=== PATIENT | female | born 1940 | race Caucasian/White ===

== ENCOUNTER 2016-11-21 07:38 | Emergency (ER) | payer MEDICARE, OTHER ==
--- NOTE | 2016-11-21 08:09 | ERPHSYRPT ---
- History of Present Illness Time Seen by Provider: 11/21/16 08:02 Source: patient Exam Limitations: no limitations Patient Subjective Stated Complaint: PT REPORTS SEVERE PAIN TO RIGHT LOWER LEG- STATES PAIN INCREASES WITH MOVEMENT-UPPER LEG IS THROBBING PAIN-REPORTS FULL SENSATION TO FOOT-DENIES INJURY Triage Nursing Assessment: PT PALE WRAM ET DRY-SCREAMING WITH MOVEMENT SHE MOVES RIGHT LEG-NO PULSE FELT-DOPPLER WAS NEG-REDNESS NOTED TO EXTREMITY Physician History: The patient is a 76-year-old female brought in by ambulance from home complaining of increasing pain in her right leg for 5 days. Yesterday she took Aleve which alleviated the pain. 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 The pain worsens when she tries to move her leg. She states sometimes it feels like it's cramping. She denies any injury to the leg. Her past medical history is significant for hypertension , high cholesterol, hypothyroidism, diabetes, and gout. Method of Injury: unknown Occurred: days ago (5) Quality: cramping, sharpness Severity of Pain-Max: severe Severity of Pain-Current: severe Lower Extremities Pain: leg: right, thigh: right Modifying Factors: Improves With: pain medication Associated Symptoms: unable to bear weight Allergies/Adverse Reactions: red dye Allergy (Verified 11/21/16 07:48) Sulfa (Sulfonamide Antibiotics) Allergy (Verified 11/21/16 07:48) Home Medications: Allopurinol 300 mg [Zyloprim 300 mg] 300 mg PO DAILY 05/08/16 [History] Clopidogrel Bisulfate 75 mg [PLAVIX 75 MG Tablet] 75 mg PO DAILY 05/08/16 [History] Furosemide 80 mg [Lasix 80 mg] 80 mg PO BID 05/08/16 [History] Glipizide 5 mg [Glucotrol 5 MG] 5 mg PO BID 05/08/16 [History] Levothyroxine Sodium 100 Mcg [Synthroid 100 Mcg] 100 mcg PO DAILY 05/08/16 [History] Losartan Potassium 100 mg PO DAILY 05/08/16 [History] Metoprolol Tartrate 25 mg [Lopressor 25MG Tab] 25 mg PO BID 05/08/16 [ History] Potassium Chloride 20 Meq [Klor-Con 20 MEQ] 20 meq PO TID 05/08/16 [History] Pravastatin Sodium 20 mg PO HS 05/08/16 [History] Spironolactone 25 mg [Aldactone 25 MG] 25 mg PO DAILY 05/08/16 [History] Aspirin 81 mg PO DAILY 11/21/16 [History] Hx Tetanus, Diphtheria Vaccination/Date Given: No Hx Influenza Vaccination/Date Given: No Hx Pneumococcal Vaccination/Date Given: No Immunizations Up to Date: Yes - Review of Systems Constitutional: No Fever, No Chills Eyes: No Symptoms Ears, Nose, & Throat: No Symptoms Respiratory: No Cough, No Dyspnea Cardiac: No Chest Pain, No Edema, No Syncope Abdominal/Gastrointestinal: No Abdominal Pain, No Nausea, No Vomiting, No Diarrhea Genitourinary Symptoms: No Dysuria Musculoskeletal: Other (right leg pain) Skin: No Rash Neurological: No Dizziness, No Focal Weakness, No Sensory Changes Psychological: No Symptoms Endocrine: No Symptoms Hematologic/Lymphatic: No Symptoms Immunological/Allergic: No Symptoms All Other Systems: Reviewed and Negative - Past Medical History Pertinent Past Medical History: Yes Neurological History: No Pertinent History ENT History: No Pertinent History Cardiac History: Coronary Artery Disease, High Cholesterol, Hypertension, Myocardial Infarction (MD) Respiratory History: Sleep Apnea, Other Endocrine Medical History: Diabetes Type II, Hypothyroidism Musculoskeletal History: No Pertinent History GI Medical History: No Pertinent History History: No Pertinent History Psycho-Social History: No Pertinent History Female Reproductive Disorders: No Pertinent History Other Medical History: 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 - Past Surgical History Past Surgical History: Yes Neuro Surgical History: No Pertinent History Cardiac: CABG Respiratory: No Pertinent History Gastrointestinal: Appendectomy, Cholecystectomy Genitourinary: No Pertinent History Musculoskeletal: No Pertinent History Female Surgical History: No Pertinent History - Social History Smoking Status: Never smoker Exposure to second hand smoke: No Drug Use: none Patient Lives Alone: No - Nursing Vital Signs Nursing Vital Signs: Initial Vital Signs Temperature 98.1 F Temperature Source Oral Pulse Rate 70 Respiratory Rate 18 Blood Pressure [] 117/79 Pain Intensity 16 - Physical Exam General Appearance: moderate distress Eyes, Ears, Nose, Throat Exam: moist mucous membranes Neck Exam: non-tender, supple Cardiovascular/Respiratory Exam: chest non-tender, normal breath sounds, regular rate/rhythm, no respiratory distress Gastrointestinal/Abdominal Exam: non-tender, guarding Back Exam: normal inspection, No vertebral tenderness Hips Exam: bilateral: non-tender, normal inspection Legs Exam: right leg: limited range of motion, soft tissue tenderness, left leg : non-tender, normal inspection Knees Exam: right knee: soft tissue tenderness (Examination of the right leg reveals soft tissue tenderness to palpation of the right iliotibial band and to a lesser extent to the right mid quadricep muscles. Lifting the right leg while keeping the knee straight elicits a pain response coming from the quadricep muscle area. There is redness in the distal part of the lower legs bilaterally. Both legs are cool to touch.), bilateral knee: normal inspection Ankle Exam: bilateral ankle: non-tender Foot Exam: bilateral foot: non-tender, normal inspection Neuro/Tendon Exam: normal sensation, normal motor functions Mental Status Exam: alert, oriented x 3, cooperative Skin Exam: rash (stasis dermatitis bilateral lower legs.) SpO2 Interpretation: normal SpO2: 97 Oxygen Delivery: Room Air - Radiology Exams Right Hip X-ray Interpretation: Interpreted by me, Negative, No Fracture - Radiology Ultrasound Exam Right Venous Lower Extremity Ultrasound: negative, Other (per U/S tech there are no DVT) Ordered Tests: Active Orders 24 hr Category Date Time Status IV Insertion STAT Care 11/21/16 08:16 Active HIP UNI (2V) INCL PEL IF DONE Stat Exams 11/21/16 08:19 Taken VENOUS UNILAT/LIMITED EXTREMIT [US] Stat Exams 11/21/16 08:21 Taken CBC W DIFF Stat Lab 11/21/16 07:58 Completed CMP Stat Lab 11/21/16 07:58 Completed D-DIMER QUANTITATION Stat Lab 11/21/16 07:15 Completed PROTIME WITH INR Stat Lab 11/21/16 07:15 Completed Medication Summary Discontinued Medications Generic Name Dose Route Start Last Admin Trade Name Freq PRN Reason Stop Dose Admin Diazepam 10 mg 11/21/16 08:20 11/21/16 08:37 Valium 10 Mg/2 Ml Syringe IV 11/21/16 08:21 10 mg STAT ONE Administration Diazepam Confirm 11/21/16 08:36 Valium 10 Mg/2 Ml Syringe Administered 11/21/16 08:37 Dose 10 mg .ROUTE .STTapMyBack-MED ONE Lab/Rad Data: Laboratory Result Diagrams 11/21/16 07:58 11/21/16 07:58 Laboratory Results 11/21/16 11/21/16 11/21/16 Range/Units 07:58 07:58 07:15 WBC 10.4 (4.0-10.5) K/mm3 RBC 4.70 (4.1-5.4) M/mm3 Hgb 13.7 (12.0-16.0) gm/dl Hct 43.4 (35-47) % MCV 92.3 (78-100) fl MCH 29.1 (26-32) pg MCHC 31.6 L (32-36) g/dl RDW 15.9 H (11.5-14.0) % Plt Count 230 (150-450) K/mm3 MPV 11.7 H (6-9.5) fl Gran % 77.5 H (36.0-66.0) % Lymphocytes % 11.8 L (24.0-44.0) % Monocytes % 9.4 (0.0-12.0) % Eosinophils % 1.2 (0.00-5.0) % Basophils % 0.1 (0.0-0.4) % Basophils # 0.01 (0-0.4) INR 1.06 (0.8-3.0) D-Dimer 0.437 (0.00-0.49) mg/L Sodium 134 L (136-145) mEq/L Potassium 4.6 (3.5-5.1) mEq/L Chloride 99 (98-107) mEq/L Carbon Dioxide 25.1 (21-32) mEq/L BUN 29 H (9-20) mg/dL Creatinine 1.43 H (0.55-1.30) mg/dl Estimated GFR 38 ML/MIN Glucose 226 H (70-110) MG/DL Calcium 9.3 (8.5-10.1) mg/dL Total Bilirubin 1.2 H (0.2-1.0) mg/dL AST 24 (15-37) U/L ALT 19 (12-78) U/L Alkaline Phosphatase 106 (46-116) U/L Serum Total Protein 7.4 (6.4-8.2) gm/dL Albumin 4.2 (3.4-5.0) g/dL - Progress Progress: improved Progress Note: 11/21/16 11:29 Pt improved with valium 10 mg IV. Counseled pt/family regarding: lab results, diagnosis, rad results - Departure Time of Disposition: 11:29 Departure Disposition: Home Clinical Impression: Muscle spasm Condition: Stable Critical Care Time: No Prescriptions: Cyclobenzaprine HCl [Flexeril] 10 mg PO Q8H PRN PRN #10 tablet PRN Reason: Muscle Spasms
[2016-11-21] MEDS ORDERED: VALIUM 10 MG/2 ML SYRINGE IV ONE (08:20)
[2016-11-21 08:26] LABS: BASOPHIL % 0.1 % (0.0-0.4); Eosinophil % 1.2 % (0.00-5.0); Granulocytes % 77.5 % (36.0-66.0); Lymphocytes % 11.8 % (24.0-44.0); Mean Cell Volume 92.3 fl (78-100); Mean Corpuscular Hemoglobin 29.1 pg (26-32); Mean Platelet Volume 11.7 fl (6-9.5); Monocytes % 9.4 % (0.0-12.0); Platelet Count 230 K/mm3 (150-450); Red Cell Distribution Width 15.9 % (11.5-14.0); White Blood Count 10.4 K/mm3 (4.0-10.5)
[2016-11-21 08:34] LABS: INR 1.06 (0.8-3.0); PROTIME 11.8 SECONDS (9.95-12.35)
[2016-11-21] MEDS ORDERED: VALIUM 10 MG/2 ML SYRINGE ONE (08:36)
[2016-11-21 09:05] LABS: ALBUMIN 4.2 g/dL (3.4-5.0); ALKALINE PHOSPHATASE 106 U/L (46-116); BILIRUBIN,TOTAL 1.2 mg/dL (0.2-1.0); BLOOD UREA NITROGEN 29 mg/dL (9-20); Carbon Dioxide 25.1 mEq/L (21-32); Glucose 226 MG/DL (70-110); SGOT/AST 24 U/L (15-37); SGPT/ALT 19 U/L (12-78); Total Protein 7.4 gm/dL (6.4-8.2)
[2016-11-21 09:26] LABS: CHLORIDE 99 mEq/L (98-107); Potassium 4.6 mEq/L (3.5-5.1); SODIUM 134 mEq/L (136-145)
[2016-11-21 11:41] VITALS: BP 170/80; PULSE 80; O2SAT 98
--- NOTE | 2016-11-21 14:33 | XRAY ---
Indication: Right leg pain. Two-dimensional sonogram and color Doppler imaging of the major venous vessels of the right leg was performed. Comparison: None No thrombus seen in the examined deep venous vessels of the right leg including greater saphenous vein. Veins demonstrate normal compressibility. Venous waveforms are normal with and without augmentation. Impression: Right leg negative for DVT. Comment: Preliminary report was given.
--- NOTE | 2016-11-21 14:38 | XRAY ---
Indication: Right hip pain. No known injury. Comparison: None 2 views of the right hip demonstrates mild osteopenia and mild degenerative changes as evidenced by joint space narrowing/sclerosis/spurring. No other bony, articular, or soft tissue abnormalities.
== END 2016-11-21 11:41 | disposition home or self-care (01) ==
LOC: ED 07:38
DX: M62.838 Other muscle spasm (principal); M79.661 Pain in right lower leg; M79.651 Pain in right thigh; I10 Essential (primary) hypertension; E78.00 Pure hypercholesterolemia, unspecified; E03.9 Hypothyroidism, unspecified; I25.10 Atherosclerotic heart disease of native coronary artery without angina pectoris; E11.9 Type 2 diabetes mellitus without complications
CPT/HCPCS: 36000; 36415; 73502; 80053; 82962; 85025; 85379; 85610; 93971; 96374; 99284; 99285; J3360

== ENCOUNTER 2016-11-24 22:09 | Observation (INO) | payer MEDICARE ==
[2016-11-24] MEDS ORDERED: Sodium Chloride 0.9% 1000 ML 1,000 ML IV SCH (22:30)
[2016-11-24] MEDS ORDERED: Phenergan 25 MG INJ IV ONE (22:31)
[2016-11-24] MEDS ORDERED: Hydromorphone 1 mg/ml Ampule IV ONE (22:31)
[2016-11-24] MEDS ORDERED: ROCEPHIN 1 Gm-D5w 50 ml Bag** 50 ML IV ONE ×2 (22:33→22:53)
--- NOTE | 2016-11-24 22:46 | ERPHSYRPT ---
- History of Present Illness Time Seen by Provider: 11/24/16 22:09 Source: patient Exam Limitations: no limitations Patient Subjective Stated Complaint: REPORTS THAT SHE WAS RELEASED FROM THIS FACILITY - AND SHE WENT HOME SHE FELL AND LAID ON THE FLOOR OF HER HOME SINCE 0200 THIS MORNING - STATES THAT SHE HAS SPASMS IN HER BACK AND LOWER LEFT LEG - INCONTINENT OF URINE ET UNABLE TO TAKE HER MEDICATIONS SINCE THAT TIME Triage Nursing Assessment: LIFTED TO CART PER EMS PERSONNEL ET [facility] STAFF WITH MUCH DIFFICULTY - MOVES ALL EXTREMITIES WITH EQUAL LIMITATION ET SPASTICITY. ALERT/ORIENTED X 3 - PLEASANT/TALKATIVE AFFECT. SKIN PWD - NO RASH/INJURY. RESPS NON-LABORED - SCATTERED WHEEZING IN THE RIGHT LUNGH Physician History: PT CAME TO [facility] ER 3 DAYS AGO WITH PAIN IN THE RIGHT HIP AND RIGHT LOWER EXTREMITY WHERE DVT WAS RULED OUT AND PT WAS RX'ED FLEXERIL. PT TRIED TO GET OUT OF BED 0200 THIS AM AT HOME WHEN SHE SAW SHE WAS NOT GOING TO MAKE IT AND EASED HERSELF DOWN TO THE FLOOR. PT STATES SHE LAY ON THE FLOOR FOR ABOUT 18 HOURS AND ULTIMATELY CAME IN TO ER TONIGHT FOR RE-EVALUATION. PT STATES SHE HAS HAD A SORE THROAT AND COUGH SINCE YESTERDAY. PT DENIES CHEST PAIN BUT ADMITS TO CHRONIC SHORTNESS OF AIR FOR YEARS. PT IS AGAIN C/O PAIN IN THE RIGHT HIP AND RIGHT LOWER EXTREMITY. PT HAS HAD RIGHT SIDED SCIATICA FOR 2 WEEKS IN MAY 2016 AND THIS CURRENT RIGHT LOWER EXTREMITY PAIN ACTUALLY STARTED 1 WEEK AGO. 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 Allergies/Adverse Reactions: red dye Allergy (Verified 11/24/16 22:24) Sulfa (Sulfonamide Antibiotics) Allergy (Verified 11/24/16 22:24) Home Medications: Allopurinol 300 mg [Zyloprim 300 mg] 300 mg PO DAILY 05/08/16 [History] Clopidogrel Bisulfate 75 mg [PLAVIX 75 MG Tablet] 75 mg PO DAILY 05/08/16 [History] Furosemide 80 mg [Lasix 80 mg] 80 mg PO BID 05/08/16 [History] Glipizide 5 mg [Glucotrol 5 MG] 5 mg PO BID 05/08/16 [History] Levothyroxine Sodium 100 Mcg [Synthroid 100 Mcg] 100 mcg PO DAILY 05/08/16 [History] Losartan Potassium 100 mg PO DAILY 05/08/16 [History] Metoprolol Tartrate 25 mg [Lopressor 25MG Tab] 25 mg PO BID 05/08/16 [ History] Potassium Chloride 20 Meq [Klor-Con 20 MEQ] 20 meq PO TID 05/08/16 [History] Pravastatin Sodium 20 mg PO HS 05/08/16 [History] Spironolactone 25 mg [Aldactone 25 MG] 25 mg PO DAILY 05/08/16 [History] Aspirin 81 mg PO DAILY 11/21/16 [History] Hx Tetanus, Diphtheria Vaccination/Date Given: Yes Hx Influenza Vaccination/Date Given: No Hx Pneumococcal Vaccination/Date Given: No Immunizations Up to Date: Yes - Review of Systems Ears, Nose, & Throat: Throat Pain Respiratory: Cough, Dyspnea Musculoskeletal: Other (RIGHT HIP AND RIGHT LOWER EXTREMITY PAIN.) All Other Systems: Reviewed and Negative - Past Medical History Pertinent Past Medical History: Yes Neurological History: No Pertinent History ENT History: No Pertinent History Cardiac History: Coronary Artery Disease, High Cholesterol, Hypertension, Myocardial Infarction ([place]) Respiratory History: Sleep Apnea, Other Endocrine Medical History: Diabetes Type II, Hypothyroidism Musculoskeletal History: No Pertinent History GI Medical History: No Pertinent History History: No Pertinent History Psycho-Social History: No Pertinent History Female Reproductive Disorders: No Pertinent History Other Medical History: 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 - Past Surgical History Past Surgical History: Yes Neuro Surgical History: No Pertinent History Cardiac: CABG Respiratory: No Pertinent History Gastrointestinal: Appendectomy, Cholecystectomy Genitourinary: No Pertinent History Musculoskeletal: No Pertinent History Female Surgical History: No Pertinent History - Social History Smoking Status: Former smoker Exposure to second hand smoke: No Drug Use: none Patient Lives Alone: No - Female History Hx Last Menstrual Period: N/A - Nursing Vital Signs Nursing Vital Signs: Initial Vital Signs Pulse Rate 84 Respiratory Rate 20 Blood Pressure [] 153/43 Pain Intensity 6 - Physical Exam General Appearance: alert Eye Exam: PERRL/EOMI Ears, Nose, Throat Exam: moist mucous membranes, pharyngeal erythema Neck Exam: normal inspection Respiratory Exam: lungs clear Cardiovascular Exam: normal heart sounds Gastrointestinal/Abdomen Exam: soft, normal bowel sounds Back Exam: normal inspection, No vertebral tenderness Extremity Exam: other (STASIS DERMATITIS OF BOTH LOWER LEGS; PAIN IN RIGHT HIP AND RIGHT LOWER EXTREMITY UPON ROM.) Neurologic Exam: alert, cooperative, sensation nml, No motor deficits Skin Exam: warm SpO2 Interpretation: normal SpO2: 97 Oxygen Delivery: Room Air - Course Nursing assessment & vital signs reviewed: Yes EKG Interpreted by Me: RATE (74), Sinus Rhythm, NORMAL AXIS, Right Bundle Branch Block - Radiology Exams Chest X-ray Interpretation: Interpreted by me (CM) Right Femur X-ray Interpretation: Interpreted by me, No Fracture Right Lower Leg X-ray Interpretation: Interpreted by me, No Fracture Pelvis X-ray Interpretation: Interpreted by me, No Fracture Ordered Tests: Active Orders 24 hr Category Date Time Status Catheter-[place] STAT Care 11/24/16 22:28 Active EKG-ER Only STAT Care 11/24/16 22:31 Active IV Insertion STAT Care 11/24/16 22:28 Active CHEST 1 VIEW (PORTABLE) Stat Exams 11/24/16 22:32 Taken FEMUR Stat Exams 11/24/16 22:38 Taken LOWER LEG Stat Exams 11/24/16 22:38 Taken PELVIS (1 OR 2 VIEWS) Stat Exams 11/24/16 22:37 Taken AMYLASE Stat Lab 11/24/16 22:35 Completed BLOOD CULTURE Stat Lab 11/25/16 01:10 Received CBC W DIFF Stat Lab 11/24/16 22:35 Completed CMP Stat Lab 11/24/16 22:35 Completed CULTURE, THROAT Stat Lab 11/24/16 23:35 Received CULTURE,URINE Stat Lab 11/25/16 00:00 Received LIPASE Stat Lab 11/24/16 22:35 Completed MAG [MAGNESIUM] Stat Lab 11/24/16 22:35 Completed Manual Differential NC Stat Lab 11/24/16 22:35 Completed [place] Screen Stat Lab 11/24/16 23:35 Completed STREP SCREEN-BETA A Stat Lab 11/24/16 23:35 Completed T4 Stat Lab 11/24/16 22:35 Completed TROPONIN Stat Lab 11/24/16 22:35 Completed TSH, 3RD Generation Stat Lab 11/24/16 22:35 Completed UA W/ MICROSCOPIC Stat Lab 11/24/16 23:30 Completed Medication Summary Generic Name Dose Route Start Last Admin Trade Name Freq PRN Reason Stop Dose Admin Sodium Chloride 1,000 mls @ 100 mls/hr 11/24/16 22:30 11/24/16 22:55 Sodium Chloride 0.9% 1000 Ml IV 12/24/16 22:29 100 mls/hr .Q10H LORNA Administration Oseltamivir Phosphate 75 mg 11/25/16 01:41 Tamiflu 75mg Capsule PO 11/25/16 01:42 STAT ONE Discontinued Medications Generic Name Dose Route Start Last Admin Trade Name Jamelq PRN Reason Stop Dose Admin Hydromorphone HCl 1 mg 11/24/16 22:31 11/24/16 22:56 Hydromorphone 1 Mg/Ml Ampule IV 11/24/16 22:32 1 mg STAT ONE Administration Hydromorphone HCl Confirm 11/24/16 22:53 Hydromorphone 1 Mg/Ml Ampule Administered 11/24/16 22:54 Dose 1 mg .ROUTE .STK-MED ONE Ceftriaxone Sodium/Dextrose 50 mls @ 100 mls/hr 11/24/16 22:33 11/24/16 22:55 Rocephin 1 Gm-D5w 50 Ml Bag IV 11/24/16 23:02 100 mls/hr STAT ONE Administration Ceftriaxone Sodium/Dextrose Confirm 11/24/16 22:53 Rocephin 1 Gm-D5w 50 Ml Bag Administered 11/24/16 22:54 Dose 50 mls @ ud IV .STK-MED ONE Promethazine HCl 12.5 mg 11/24/16 22:31 11/24/16 22:55 Phenergan 25 Mg Inj IV 11/24/16 22:32 12.5 mg STAT ONE Administration Promethazine HCl Confirm 11/24/16 22:53 Phenergan 25 Mg Inj Administered 11/24/16 22:54 Dose 25 mg .ROUTE .STK-MED ONE Lab/Rad Data: Laboratory Result Diagrams 11/24/16 22:35 11/24/16 22:35 Laboratory Results 11/24/16 11/24/16 11/24/16 Range/Units 23:35 23:35 23:35 WBC (4.0-10.5) K/mm3 RBC (4.1-5.4) M/mm3 Hgb (12.0-16.0) gm/dl Hct (35-47) % MCV (78-100) fl MCH (26-32) pg MCHC (32-36) g/dl RDW (11.5-14.0) % Plt Count (150-450) K/mm3 MPV (6-9.5) fl Segmented Neutrophils (36.0-66.0) % Lymphocytes (Manual) (24-44) % Monocytes (Manual) (0.0-12.0) % Eosinophils (Manual) (0.00-3.0) % Differential Comment Platelet Estimate (NORMAL) Anisocytosis Sodium (136-145) mEq/L Potassium (3.5-5.1) mEq/L Chloride (98-107) mEq/L Carbon Dioxide (21-32) mEq/L Anion Gap (5-15) MEQ/L BUN (9-20) mg/dL Creatinine (0.55-1.30) mg/dl Estimated GFR ML/MIN Glucose (70-110) MG/DL Calcium (8.5-10.1) mg/dL Magnesium (1.8-2.4) mg/dL Total Bilirubin (0.2-1.0) mg/dL AST (15-37) U/L ALT (12-78) U/L Alkaline Phosphatase (46-116) U/L Troponin I (0.000-0.056) ng/ml Serum Total Protein (6.4-8.2) gm/dL Albumin (3.4-5.0) g/dL Amylase (25-115) U/L Lipase (73-393) U/L Thyroxine (T4) (4.7-13.3) UG/DL TSH 3rd Generation (0.358-3.740) mIU/L Ur Collection Type Urine Color (YELLOW) Urine Appearance (CLEAR) Urine pH (5-6) Ur Specific [place] (1.005-1.025) Urine Protein (Negative) Urine Glucose (UA) (NEGATIVE) mg/dL Urine Ketones (NEGATIVE) Urine Nitrite (NEGATIVE) Urine Bilirubin (NEGATIVE) Urine Urobilinogen (0-1) mg/dL Urine WBC (Auto) (NEGATIVE) Urine RBC (Auto) (0-5) Christian/ul Urine Microscopic RBC (0-2) /HPF Urine Microscopic WBC (0-5) /HPF Ur Epithelial Cells (FEW) /HPF Urine Bacteria (NEGATIVE) /HPF Urine Mucus (NEGATIVE) /HPF Monoscreen NEGATIVE (Negative) Influenza Type A Ag POSITIVE (NEGATIVE) Influenza Type B Ag NEGATIVE (NEGATIVE) RSV (PCR) NEGATIVE (Negative) Streptococcus Screen NEGATIVE (Negative) Specimen Received 11/24/16 11/24/16 11/24/16 Range/Units 23:30 22:35 22:35 WBC (4.0-10.5) K/mm3 RBC (4.1-5.4) M/mm3 Hgb (12.0-16.0) gm/dl Hct (35-47) % MCV (78-100) fl MCH (26-32) pg MCHC (32-36) g/dl RDW (11.5-14.0) % Plt Count (150-450) K/mm3 MPV (6-9.5) fl Segmented Neutrophils (36.0-66.0) % Lymphocytes (Manual) (24-44) % Monocytes (Manual) (0.0-12.0) % Eosinophils (Manual) (0.00-3.0) % Differential Comment Platelet Estimate (NORMAL) Anisocytosis Sodium 144 (136-145) mEq/L Potassium 4.4 (3.5-5.1) mEq/L Chloride 105 (98-107) mEq/L Carbon Dioxide 25.9 (21-32) mEq/L Anion Gap 17.1 H (5-15) MEQ/L BUN 33 H (9-20) mg/dL Creatinine 1.37 H (0.55-1.30) mg/dl Estimated GFR 40 ML/MIN Glucose 212 H (70-110) MG/DL Calcium 9.3 (8.5-10.1) mg/dL Magnesium 2.3 (1.8-2.4) mg/dL Total Bilirubin 1.2 H (0.2-1.0) mg/dL AST 46 H (15-37) U/L ALT 33 (12-78) U/L Alkaline Phosphatase 119 H (46-116) U/L Troponin I 0.049 (0.000-0.056) ng/ml Serum Total Protein 7.1 (6.4-8.2) gm/dL Albumin 3.6 (3.4-5.0) g/dL Amylase 29 (25-115) U/L Lipase 158 (73-393) U/L Thyroxine (T4) 9.4 (4.7-13.3) UG/DL TSH 3rd Generation 2.526 (0.358-3.740) mIU/L Ur Collection Type CATH Urine Color YELLOW (YELLOW) Urine Appearance CLOUDY (CLEAR) Urine pH 5.0 (5-6) Ur Specific [place] 1.015 (1.005-1.025) Urine Protein 30 (Negative) Urine Glucose (UA) NEGATIVE (NEGATIVE) mg/dL Urine Ketones TRACE (NEGATIVE) Urine Nitrite NEGATIVE (NEGATIVE) Urine Bilirubin NEGATIVE (NEGATIVE) Urine Urobilinogen 0.2 (0-1) mg/dL Urine WBC (Auto) LARGE (NEGATIVE) Urine RBC (Auto) MODERATE (0-5) Christian/ul Urine Microscopic RBC 10-15 (0-2) /HPF Urine Microscopic WBC 50-100 (0-5) /HPF Ur Epithelial Cells FEW (FEW) /HPF Urine Bacteria MANY (NEGATIVE) /HPF Urine Mucus SLIGHT (NEGATIVE) /HPF Monoscreen (Negative) Influenza Type A Ag (NEGATIVE) Influenza Type B Ag (NEGATIVE) RSV (PCR) (Negative) Streptococcus Screen (Negative) Specimen Received 11/24/16:2330 11/24/16 Range/Units 22:35 WBC 9.1 (4.0-10.5) K/mm3 RBC 4.94 (4.1-5.4) M/mm3 Hgb 14.3 (12.0-16.0) gm/dl Hct 45.5 (35-47) % MCV 92.1 (78-100) fl MCH 28.9 (26-32) pg MCHC 31.4 L (32-36) g/dl RDW 16.0 H (11.5-14.0) % Plt Count 205 (150-450) K/mm3 MPV 12.1 H (6-9.5) fl Segmented Neutrophils 84 H (36.0-66.0) % Lymphocytes (Manual) 6 L (24-44) % Monocytes (Manual) 9 (0.0-12.0) % Eosinophils (Manual) 1 (0.00-3.0) % Differential Comment ABNORMAL Platelet Estimate NORMAL (NORMAL) Anisocytosis 1+ Sodium (136-145) mEq/L Potassium (3.5-5.1) mEq/L Chloride (98-107) mEq/L Carbon Dioxide (21-32) mEq/L Anion Gap (5-15) MEQ/L BUN (9-20) mg/dL Creatinine (0.55-1.30) mg/dl Estimated GFR ML/MIN Glucose (70-110) MG/DL Calcium (8.5-10.1) mg/dL Magnesium (1.8-2.4) mg/dL Total Bilirubin (0.2-1.0) mg/dL AST (15-37) U/L ALT (12-78) U/L Alkaline Phosphatase (46-116) U/L Troponin I (0.000-0.056) ng/ml Serum Total Protein (6.4-8.2) gm/dL Albumin (3.4-5.0) g/dL Amylase (25-115) U/L Lipase (73-393) U/L Thyroxine (T4) (4.7-13.3) UG/DL TSH 3rd Generation (0.358-3.740) mIU/L Ur Collection Type Urine Color (YELLOW) Urine Appearance (CLEAR) Urine pH (5-6) Ur Specific [place] (1.005-1.025) Urine Protein (Negative) Urine Glucose (UA) (NEGATIVE) mg/dL Urine Ketones (NEGATIVE) Urine Nitrite (NEGATIVE) Urine Bilirubin (NEGATIVE) Urine Urobilinogen (0-1) mg/dL Urine WBC (Auto) (NEGATIVE) Urine RBC (Auto) (0-5) Christian/ul Urine Microscopic RBC (0-2) /HPF Urine Microscopic WBC (0-5) /HPF Ur Epithelial Cells (FEW) /HPF Urine Bacteria (NEGATIVE) /HPF Urine Mucus (NEGATIVE) /HPF Monoscreen (Negative) Influenza Type A Ag (NEGATIVE) Influenza Type B Ag (NEGATIVE) RSV (PCR) (Negative) Streptococcus Screen (Negative) Specimen Received - Progress Discussed with : Jonathan (OBS - [id number]) - Departure Time of Disposition: 01:48 Departure Disposition: Observation Clinical Impression: RIGHT LOWER EXTREMITY PAIN, INFLUENZA "A", UTI, INTERMEDIATE TROPONIN LEVEL, CAD, HTN, DM, HYPOTHYROIDISM Condition: Fair Critical Care Time: No Referrals: BRIANNA BARNES [Primary Care Provider] -
[2016-11-24 22:49] LABS: Mean Cell Volume 92.1 fl (78-100); Mean Corpuscular Hemoglobin 28.9 pg (26-32); Mean Platelet Volume 12.1 fl (6-9.5); Platelet Count 205 K/mm3 (150-450); Red Blood Count 4.94 M/mm3 (4.1-5.4); White Blood Count 9.1 K/mm3 (4.0-10.5)
[2016-11-24] MEDS ORDERED: Sodium Chloride 0.9% 1000 ML 1,000 ML ONE (22:53)
[2016-11-24] MEDS ORDERED: Hydromorphone 1 mg/ml Ampule ONE (22:53)
[2016-11-24] MEDS ORDERED: Phenergan 25 MG INJ ONE (22:53)
[2016-11-24 23:12] LABS: ALBUMIN 3.6 g/dL (3.4-5.0); ANION GAP 17.1 MEQ/L (5-15); BILIRUBIN,TOTAL 1.2 mg/dL (0.2-1.0); Carbon Dioxide 25.9 mEq/L (21-32); Potassium 4.4 mEq/L (3.5-5.1); Total Protein 7.1 gm/dL (6.4-8.2)
[2016-11-24 23:23] LABS: MAGNESIUM 2.3 mg/dL (1.8-2.4); TROPONIN 0.049 ng/ml (0.000-0.056)
[2016-11-24 23:49] LABS: ANISOCYTOSIS 1+; Eosinophil 1 % (0.00-3.0); Platelet Estimate NORMAL (NORMAL); Total Cells Counted 100
[2016-11-24 23:52] LABS: Bacteria MANY /HPF (NEGATIVE); COMPLETE URINE MICROSCOPIC? YES; Collection Type CATH; Epithelial Cells FEW /HPF (FEW); Mucus SLIGHT /HPF (NEGATIVE); WBC 50-100 /HPF (0-5)
[2016-11-25] MEDS ORDERED: Tamiflu 75MG Capsule PO ONE ×2 (01:41→01:44)
[2016-11-25] MEDS ORDERED: DILAUDID 2 MG INJECTION IV PRN (02:33)
[2016-11-25] MEDS ORDERED: PROVENTIL 2.5 MG/3 ML NEB IH PRN (02:33)
[2016-11-25] MEDS ORDERED: Phenergan 25 MG INJ IV PRN (02:33)
[2016-11-25] MEDS ORDERED: NovoLOG Insulin SQ PRN (02:33)
[2016-11-25] MEDS ORDERED: TYLENOL 325 MG PO PRN (02:33)
[2016-11-25] MEDS ORDERED: Robitussin AC Syrup Unit Dose Cup PO PRN (02:33)
[2016-11-25] MEDS: Sodium Chloride 0.9% 1000 ML 1,000 ML IV SCH ×2 (04:32→08:05)
[2016-11-25 05:47] LABS: BASOPHIL % 0.3 % (0.0-0.4); Eosinophil % 2.3 % (0.00-5.0); Granulocytes % 72.8 % (36.0-66.0); Lymphocytes % 10.8 % (24.0-44.0); Mean Cell Volume 93.6 fl (78-100); Mean Corpuscular Hemoglobin 29.1 pg (26-32); Mean Platelet Volume 12.1 fl (6-9.5); Monocytes % 13.8 % (0.0-12.0); Platelet Count 191 K/mm3 (150-450); Red Blood Count 4.36 M/mm3 (4.1-5.4); Red Cell Distribution Width 15.8 % (11.5-14.0); White Blood Count 8.7 K/mm3 (4.0-10.5)
[2016-11-25 06:12] LABS: BILIRUBIN,TOTAL 0.9 mg/dL (0.2-1.0); Carbon Dioxide 29.3 mEq/L (21-32); Total Protein 6.1 gm/dL (6.4-8.2)
[2016-11-25 06:17] LABS: TROPONIN 0.07 ng/ml (0.000-0.056)
[2016-11-25 07:15] VITALS: BP 137/62; PULSE 86; O2SAT 90
--- NOTE | 2016-11-25 09:11 | XRAY ---
Indication: Pain following fall. Comparison: None Single AP pelvis intact with moderate lumbar degenerative changes, tiny bilateral superior acetabular spurring, and a few pelvic phleboliths. No other bony, articular, or soft tissue abnormalities.
--- NOTE | 2016-11-25 09:13 | XRAY ---
Indication: Short of breath. Comparison: None Portable apical lordotic chest limited due to patient body habitus and underinflated lungs. Visualized lungs clear. Heart is enlarged. Vascularity normal. Bony thorax grossly intact with mild osteopenia, degenerative changes, and sternotomy wires. Impression: Limited chest. Cardiomegaly without obvious focal pneumonic process or gross CHF.
--- NOTE | 2016-11-25 09:15 | XRAY ---
Indication: Pain following fall. Comparison: None 2 views of the right femur obtained. Lateral view limited due to suboptimal positioning/body habitus. No gross acute fracture, dislocation, suspicious bony lesions, or soft tissue abnormalities.
--- NOTE | 2016-11-25 09:17 | XRAY ---
Indication: Pain following fall. Comparison: None AP/lateral right lower leg demonstrates mild tricompartmental knee degenerative changes, tiny knee effusion, and posterior heel spur. No other bony, articular, or soft tissue abnormalities.
[2016-11-25] MEDS ORDERED: Tamiflu 75MG Capsule PO SCH (10:00)
[2016-11-25] MEDS ORDERED: ROCEPHIN 1 Gm-D5w 50 ml Bag** 50 ML IV SCH (22:00)
--- NOTE | 2016-11-26 11:19 | SSS ---
DISCHARGE DIAGNOSES: 1) NON-ST ELEVATION MYOCARDIAL INFARCTION. 2) INFLUENZA A. 3) DIABETES MELLITUS TYPE 2. 4) RIGHT LEG PAIN. HISTORY OF PRESENT ILLNESS: This is a 76 year old patient of mine who first presented to the emergency department on 11/21/2016 complaining of some leg pain. She reports that it was hard to bear weight on that. She had x-rays that were normal and she was given a muscle relaxant and ibuprofen to take home. 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 She reports she had been having to sleep in a recliner or lying down, that she had pain in her right leg from her hip to the front of her ankle that was sharp. She was sitting in the kitchen to take naps. She reports she had gone to her bedroom to fold clothes and her hip pain was worse with motion so she thought she might try to lay down on her bed face so she did this and did not get relief but then she decided to slide from her bed to her knees on the floor but then she could not stand up and she was lying face first on her floor at approximately 0200 hours to 2000 hours Wednesday night. Her daughter found her when she came to check on her and called the ambulance and so she was brought to the emergency department by ambulance. In the emergency department she was found to have at-risk troponin levels 0.049. After the emergency room doctor called me for her admission, her influenza A came back positive so she was also placed in isolation and started on Tamiflu. The patient said had she had just started to develop a cough. The patient had a repeat troponin that was 0.070 which was a critical value. She has history of coronary artery disease and Dr. Chase is her research technologist. He as contacted but Dr. Tarango was covering for him and they requested that she be transferred to [facility] where she could see her research technologist. REVIEW OF SYSTEMS: The patient states that she has had dyspnea that is normal for her and not new. She denied any chest pain. She had some shivering, no diaphoresis, a little bit of cough that started Wednesday afternoon and continued into Wednesday. She denied any jaw pain or left arm or fever at home. She has been coughing up some holliday mucous. She denied any nausea or vomiting. She states that she had been eating okay. She reports her blood sugars have been okay. She had some diarrhea this past Wednesday. PAST MEDICAL HISTORY: Diabetes mellitus type 2, coronary artery disease, hyperlipidemia, hypertension, hypothyroidism, obesity, gastroesophageal reflux disease, sleep apnea. PAST SURGICAL HISTORY: Appendectomy, coronary artery bypass graft, cholecystectomy. MEDICATIONS: Please see the medication reconciliation list. ALLERGIES: SULFA, RED DYE. SOCIAL HISTORY: She lives alone. No tobacco or alcohol use. FAMILY HISTORY: Noncontributory. PHYSICAL EXAMINATION: VITAL SIGNS: Temperature current 97.9F, temperature max 97.9F, heart rate 86 to 106, respiratory rate 22 to 26, blood pressure 113 to 137 over 53 to 62, weight 152 kg. Oxygen saturation 90 to 97% on room air. GENERAL: The patient was lying on her back in bed, a pleasant talkative lady in no acute distress. CVS: She had a regular rate and rhythm. No murmurs, gallops or rubs are appreciated. CHEST: Clear to auscultation bilaterally. No crackles or wheezes. ABDOMEN: Soft, nontender, nondistended with normal bowel sounds. SKIN: Warm, dry and intact. EXTREMITIES: No clubbing, cyanosis or edema. She had some pain to palpation of her knees bilaterally with limited range of motion of her hips bilaterally. LABORATORY DATA AND TESTS: Her white blood cell count was normal. Glucose 162. Troponin reported in history of present illness. UA revealed 50 to 100 white blood cells, many bacteria. Influenza A was positive. Influenza B, respiratory syncytial virus, strep and mono were all negative. Chest x-ray was read as limited chest, cardiomegaly without obvious focal pneumonic process or gross congestive heart failure. Pelvis x-ray was read as moderate lumbar degenerative changes. Please see the radiologist dictation for full report. Right femur x-ray read as no acute fracture or dislocation. Please see the radiologist report for full dictation. Right tib-fib x-ray revealed mild tricompartmental knee degenerative changes, tiny knee effusion and posterior heel spur. Please see the radiologist report for full dictation. Her EKG's were without any acute changes. ASSESSMENT AND PLAN: 1) NON-ST ELEVATION MYOCARDIAL INFARCTION WITH INCREASE IN HER TROPONIN: Again her research technologist was contacted and the covering research technologist asked for her to be transferred to [facility]. Once a bed was obtained she was transferred by ACLS to [facility] for further evaluation by her specialist. 2) INFLUENZA A: She was placed in isolation. She was also started on Tamiflu 75 mg p.o. b.i.d. 3) DIABETES MELLITUS TYPE 2: The patient reported good blood sugars at home. She was transferred before any further management of diabetes could be undertaken. She was on a low dose sliding scale of NovoLog. 4) RIGHT LEG PAIN: Her x-rays continued to be negative. The etiology of this is unclear at the time of her transfer. DISPOSITION: The patient was transferred to [facility] for further care from the research technologist.
== END 2016-11-25 10:25 | disposition short-term general hospital (02) ==
LOC: ED 22:09 → MED SURG 11-25 02:12
PROVIDERS: ADMIT Internal Medicine; ATTEND Internal Medicine
DX: I21.4 Non-ST elevation (NSTEMI) myocardial infarction (principal); J10.1 Influenza due to other identified influenza virus with other respiratory manifestations; E11.9 Type 2 diabetes mellitus without complications; M79.604 Pain in right leg; I25.810 Atherosclerosis of coronary artery bypass graft(s) without angina pectoris; E78.5 Hyperlipidemia, unspecified; I10 Essential (primary) hypertension; E03.9 Hypothyroidism, unspecified; K21.9 Gastro-esophageal reflux disease without esophagitis; G47.30 Sleep apnea, unspecified; Z79.899 Other long term (current) drug therapy
CPT/HCPCS: 36000; 36415; 51702; 71010; 72170; 73552; 73590; 80053; 81000; 82150; 83690; 83735; 84436; 84443; 84484; 85025; 86308; 87040; 87070; 87077; 87086; 87186; 87430; 87631; 93005; 93268; 94760; 96360; 96361; 96365; 96374; 96375; 99285; G0378; J0696; J1170; J2550; A9270-GY

== ENCOUNTER 2019-03-14 19:32 | Observation (INO) | payer BC, MEDICARE, OTHER ==
--- NOTE | 2019-03-14 20:37 | ERPHSYRPT ---
- History of Present Illness Time Seen by Provider: 03/14/19 20:24 Source: patient Exam Limitations: no limitations Patient Subjective Stated Complaint: Blister on anterior tibia which has turned into a superficial ulcerated area over two week period. Patient came here because of Wound Center capabilities Allergies/Adverse Reactions: red dye Allergy (Verified 11/24/16 22:24) Sulfa (Sulfonamide Antibiotics) Allergy (Verified 11/24/16 22:24) Home Medications: Allopurinol 300 mg [Zyloprim 300 mg] 400 mg PO DAILY 05/08/16 [History] Clopidogrel Bisulfate 75 mg [PLAVIX 75 MG Tablet] 75 mg PO DAILY 05/08/16 [History] Levothyroxine Sodium 100 Mcg [Synthroid 100 Mcg] 125 mcg PO DAILY 05/08/16 [History] Losartan Potassium 25 mg PO HS 05/08/16 [History] Metoprolol Tartrate 25 mg [Lopressor 25MG Tab] 50 mg PO DAILY 05/08/16 [ History] Potassium Chloride 20 Meq [Klor-Con 20 MEQ] 20 meq PO BID 05/08/16 [History] Pravastatin Sodium 20 mg PO HS 05/08/16 [History] Ibuprofen [IBUPROFEN 400 MG TABLET] 1 tablet PO Q4HPRN PRN 11/25/16 [History] Bumetanide 2 mg PO BID 03/14/19 [History] Doxycycline Hyclate 100 mg PO BID 03/14/19 [History] Gabapentin 300 mg PO HS 03/14/19 [History] Insulin NPH/Reg 70/30 [Novolin 70/30] 36 unit SQ EVENING MEAL 03/14/19 [ History] Insulin NPH/Reg 70/30 [Novolin 70/30] 60 unit SQ DAILY 03/14/19 [History] Nitrofurantoin Macro 100 mg [Macrobid 100MG Capsule] 100 mg PO DAILY 03/14 [History] Umeclidinium Brm/Vilanterol Tr [Anoro Ellipta 62.5-25 Mcg INH] 62.5 mg NEB DAILY PRN PRN 03/14/19 [History] Hx Tetanus, Diphtheria Vaccination/Date Given: No Hx Influenza Vaccination/Date Given: No Hx Pneumococcal Vaccination/Date Given: No - Review of Systems Constitutional: No Symptoms Eyes: No Symptoms Respiratory: No Symptoms Cardiac: No Symptoms Skin: Cellulitis, Other (Weeping lesion anterior tibia) All Other Systems: Reviewed and Negative - Past Medical History Pertinent Past Medical History: Yes Neurological History: No Pertinent History ENT History: No Pertinent History Cardiac History: Coronary Artery Disease, High Cholesterol, Hypertension, Myocardial Infarction ([place]) Respiratory History: Sleep Apnea, Other Endocrine Medical History: Diabetes Type II, Hypothyroidism Musculoskeletal History: No Pertinent History GI Medical History: No Pertinent History History: No Pertinent History Psycho-Social History: No Pertinent History Female Reproductive Disorders: No Pertinent History Other Medical History: 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 - Past Surgical History Past Surgical History: Yes Neuro Surgical History: No Pertinent History Cardiac: CABG Respiratory: No Pertinent History Gastrointestinal: Appendectomy, Cholecystectomy Genitourinary: No Pertinent History Musculoskeletal: No Pertinent History Female Surgical History: No Pertinent History - Social History Smoking Status: Never smoker Exposure to second hand smoke: No Drug Use: none Patient Lives Alone: No - Nursing Vital Signs Nursing Vital Signs: Initial Vital Signs Temperature 98.0 F 03/14/19 19:34 Pulse Rate 75 03/14/19 19:34 Respiratory Rate 20 03/14/19 19:34 Blood Pressure 106/54 03/14/19 19:34 O2 Sat by Pulse Oximetry 95 03/14/19 19:34 Pain Scale Pain Intensity 3 - Physical Exam General Appearance: no apparent distress Eye Exam: PERRL/EOMI Ears, Nose, Throat Exam: normal ENT inspection Neck Exam: normal inspection Respiratory Exam: normal breath sounds, lungs clear, airway intact Cardiovascular Exam: regular rate/rhythm, normal heart sounds Gastrointestinal/Abdomen Exam: soft, normal bowel sounds Extremity Exam: pedal edema (bilateral yovanny; weeping lesion R anterior tibia), swelling (bilateral) Skin Exam: normal color (except affected lower extremities) SpO2: 95 Ordered Tests: Active Orders 24 hr Category Date Time Status Admit as Inpatient ROUTINE Care 03/14/19 22:38 Active IV Insertion STAT Care 03/14/19 20:37 Active BLOOD CULTURE Stat Lab 03/14/19 20:54 Received CBC W DIFF Stat Lab 03/14/19 20:54 Completed CMP Stat Lab 03/14/19 20:54 Completed Transfer Order Routine Transfer 03/14/19 Ordered Medication Summary Generic Name Dose Route Start Last Admin Trade Name Freq PRN Reason Stop Dose Admin Sodium Chloride 1,000 mls @ 100 mls/hr 03/14/19 21:00 03/14/19 21:25 Sodium Chloride 0.9% 1000 Ml IV 04/13/19 20:59 100 mls/hr .Q10H LORNA Administration CBC essentially WNL; CMP Gluc 156; BUN 133 Creat 2.32. Lab/Rad Data: Laboratory Result Diagrams 03/14/19 20:54 03/14/19 20:54 Laboratory Results 03/14/19 03/14/19 Range/Units 20:54 20:54 WBC 10.9 H (4.0-10.5) K/mm3 RBC 5.00 (4.1-5.4) M/mm3 Hgb 12.8 (12.0-16.0) gm/dl Hct 42.0 (35-47) % MCV 84.0 (78-100) fl MCH 25.6 L (26-32) pg MCHC 30.5 L (32-36) g/dl RDW 22.5 H (11.5-14.0) % Plt Count 153 (150-450) K/mm3 MPV 12.2 H (6-9.5) fl Gran % 77.1 H (36.0-66.0) % Eos # (Auto) 0.22 (0-0.5) Absolute Lymphs (auto) 1.23 (1.0-4.6) Absolute Monos (auto) 1.02 (0.0-1.3) Lymphocytes % 11.3 L (24.0-44.0) % Monocytes % 9.3 (0.0-12.0) % Eosinophils % 2.0 (0.00-5.0) % Basophils % 0.3 (0.0-0.4) % Absolute Granulocytes 8.43 H (1.4-6.9) Basophils # 0.03 (0-0.4) Sodium 137 (137-145) mmol/L Potassium 3.3 L (3.5-5.1) mmol/L Chloride 95 L (98-107) mmol/L Carbon Dioxide 31 H (22-30) mmol/L Anion Gap 14.7 (5-15) MEQ/L BUN 133 H (7-17) mg/dL Creatinine 2.32 H (0.52-1.04) mg/dL Estimated GFR 21.7 ML/MIN Glucose 156 H (74-106) mg/dL Calcium 9.6 (8.4-10.2) mg/dL Total Bilirubin 1.90 H (0.2-1.3) mg/dL AST 67 H (14-36) U/L ALT 33 (0-35) U/L Alkaline Phosphatase 243 H (38-126) U/L Serum Total Protein 6.9 (6.3-8.2) g/dL Albumin 3.5 (3.5-5.0) g/dL - Progress Discussed with Dr.: Hayes (Discussed patient and plan for admission; wound care referral and abx) - Departure Departure Disposition: Observation Clinical Impression: Cellulitis and abscess of lower extremity Condition: Stable Critical Care Time: Yes Critical Care Time(excluding separately billable procedures): 30-74 minutes Referrals: NASEEM CADET MD [Primary Care Provider] - Additional Instructions: Follow up with primary care after discharge from hospital and release from wound care
[2019-03-14 20:52] LABS: BASOPHIL % 0.3 % (0.0-0.4); Basophil (Absolute #) 0.03 (0-0.4); Eosinophil (Absolute #) 0.22 (0-0.5); Granulocyte Absolute (ANC) 8.43 (1.4-6.9); Granulocytes % 77.1 % (36.0-66.0); Hemoglobin 12.8 gm/dl (12.0-16.0); Lymphocyte (Absolute #) 1.23 (1.0-4.6); Lymphocytes % 11.3 % (24.0-44.0); Mean Corpuscular Hemoglobin 25.6 pg (26-32); Mean Corpuscular Hgb Concent. 30.5 g/dl (32-36); Mean Platelet Volume 12.2 fl (6-9.5); Monocyte (Absolute #) 1.02 (0.0-1.3); Monocytes % 9.3 % (0.0-12.0); Platelet Count 153 K/mm3 (150-450); Red Cell Distribution Width 22.5 % (11.5-14.0); White Blood Count 10.9 K/mm3 (4.0-10.5)
[2019-03-14] MEDS ORDERED: Sodium Chloride 0.9% 1000 ML 1,000 ML IV SCH ×2 (21:00→23:24)
[2019-03-14 21:03] LABS: ALBUMIN 3.5 g/dL (3.5-5.0); ANION GAP 14.7 MEQ/L (5-15); BILIRUBIN,TOTAL 1.9 mg/dL (0.2-1.3); Calcium 9.6 mg/dL (8.4-10.2); Creatinine 1 2.32 mg/dL (0.52-1.04); Potassium 3.3 mmol/L (3.5-5.1); Total Protein 6.9 g/dL (6.3-8.2)
[2019-03-14] MEDS ORDERED: Sodium Chloride 0.9% 1000 ML 1,000 ML ONE (21:22)
[2019-03-15] MEDS: TYLENOL 325 MG PO PRN ×2 (00:19→09:26)
[2019-03-15] MEDS: Zosyn 3.375GM/100 Ml D5W 3.375 GM/100 ML IVPB IV SCH ×4 (00:53→17:26)
[2019-03-15 03:24] LABS: Slide Review 1 YES
[2019-03-15 06:03] LABS: BASOPHIL % 0.5 % (0.0-0.4); Basophil (Absolute #) 0.05 (0-0.4); Eosinophil % 3.3 % (0.00-5.0); Eosinophil (Absolute #) 0.36 (0-0.5); Granulocyte Absolute (ANC) 8.23 (1.4-6.9); Granulocytes % 74.5 % (36.0-66.0); Hematocrit 39.9 % (35-47); Hemoglobin 12.1 gm/dl (12.0-16.0); Lymphocyte (Absolute #) 1.27 (1.0-4.6); Lymphocytes % 11.5 % (24.0-44.0); Mean Cell Volume 84.9 fl (78-100); Mean Corpuscular Hemoglobin 25.7 pg (26-32); Mean Corpuscular Hgb Concent. 30.3 g/dl (32-36); Mean Platelet Volume 12.2 fl (6-9.5); Monocyte (Absolute #) 1.12 (0.0-1.3); Monocytes % 10.2 % (0.0-12.0); Platelet Count 156 K/mm3 (150-450); Red Cell Distribution Width 22.4 % (11.5-14.0)
[2019-03-15 06:21] LABS: ALBUMIN 3.2 g/dL (3.5-5.0); ANION GAP 14.3 MEQ/L (5-15); BILIRUBIN,TOTAL 1.8 mg/dL (0.2-1.3); Calcium 9.3 mg/dL (8.4-10.2); Creatinine 1 2.08 mg/dL (0.52-1.04); Potassium 3.4 mmol/L (3.5-5.1); Total Protein 6.4 g/dL (6.3-8.2)
[2019-03-15 06:52] LABS: Slide Review 1 YES
--- NOTE | 2019-03-15 13:34 | PCM.HP ---
History of Present Illness - Chief Complaint Chief Complaint: c/o swelling on legs History of Present Illness: is a 78 year old female.c/o Blister on anterior tibia which has turned into a superficial ulcerated area over two week period. Patient came here because of Wound Center capabilities - Review of Systems Constitutional: No Fever, No Chills Eyes: No Symptoms Ears, Nose, & Throat: No Symptoms Respiratory: No Cough, No Short Of Breath Cardiac: No Chest Pain, No Edema, No Syncope Abdominal/Gastrointestinal: No Abdominal Pain, No Nausea, No Vomiting, No Diarrhea Genitourinary Symptoms: No Dysuria Musculoskeletal: No Back Pain, No Neck Pain Skin: Cellulitis, No Rash Neurological: No Dizziness, No Focal Weakness, No Sensory Changes Psychological: No Symptoms Endocrine: No Symptoms Hematologic/Lymphatic: No Symptoms Immunological/Allergic: No Symptoms Medications & Allergies Home Medications: Home Medication List Allopurinol 300 mg [Zyloprim 300 mg] 400 mg PO DAILY 05/08/16 [History Confirmed 03/14/19] Clopidogrel Bisulfate 75 mg [PLAVIX 75 MG Tablet] 75 mg PO DAILY 05/08/16 [History Confirmed 03/14/19] Levothyroxine Sodium 100 Mcg [Synthroid 100 Mcg] 125 mcg PO DAILY 05/08/16 [History Confirmed 03/14/19] Losartan Potassium 25 mg PO HS 05/08/16 [History Confirmed 03/14/19] Metoprolol Tartrate 25 mg [Lopressor 25MG Tab] 50 mg PO BID 05/08/16 [ History Confirmed 03/15/19] Potassium Chloride 20 Meq [Klor-Con 20 MEQ] 20 meq PO DAILY 05/08/16 [History Confirmed 03/14/19] Pravastatin Sodium 20 mg PO HS 05/08/16 [History Confirmed 03/14/19] Acetaminophen 500 mg [Tylenol Extra Strength 500 mg] 1,000 mg PO TID PRN PRN 03/14/19 [History Confirmed 03/15/19] Bumetanide 6 mg PO BID 03/14/19 [History Confirmed 03/15/19] Doxycycline Hyclate 100 mg PO BID 03/14/19 [History Confirmed 03/14/19] Gabapentin 300 mg PO HS 03/14/19 [History Confirmed 03/14/19] Insulin NPH/Reg 70/30 [Novolin 70/30] 36 unit SQ EVENING MEAL 03/14/19 [ History Confirmed 03/14/19] Insulin NPH/Reg 70/30 [Novolin 70/30] 60 unit SQ DAILY 03/14/19 [History Confirmed 03/14/19] Aspirin EC 81 mg [Ecotrin 81 mg] 81 mg PO HS 03/15/19 [History Confirmed 03/15/19] Loratadine 10 mg [Claritin 10 mg] 10 mg PO DAILY 03/15/19 [History Confirmed 03/15/19] Nitroglycerin 0.4 mg Tablet [Nitrostat 0.4 MG Tablet] 0.4 mg SL Q5MIN PRN MR X 3 PRN 03/15/19 [History Confirmed 03/15/19] Pramipexole Di-HCl 0.5 mg [Mirapex 0.5 MG Tablet] 0.25 mg PO HS 03/15/19 [ History Confirmed 03/15/19] Ubidecarenone/Vit E Acet [Co Q-10 100 mg Softgel] 1 each PO DAILY 03/15/19 [ History Confirmed 03/15/19] metOLazone [Metolazone] 5 mg PO UD 03/15/19 [History Confirmed 03/15/19] Allergies/Adverse Reactions: Allergies Allergy/AdvReac Type Severity Reaction Status Date / Time red dye Allergy Verified 11/24/16 22:24 Sulfa (Sulfonamide Allergy Verified 11/24/16 22:24 Antibiotics) - Past Medical History Past Medical History: Yes Neurological History: Migraines ENT History: No Pertinent History Cardiac History: Coronary Artery Disease, High Cholesterol, Hypertension, Myocardial Infarction ([place]) Respiratory History: Sleep Apnea, Other Endocrine Medical History: Diabetes Type II, Hypothyroidism Musculoskelatal History: No Pertinent History GI Medical History: No Pertinent History History: No Pertinent History Pyscho-Social History: No Pertinent History Reproductive Disorders: No Pertinent History Comment: 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8 F 78 20 136/68 96 03/15/19 07:28 97.9 F 80 20 134/58 95 03/15/19 06:53 92 L 03/15/19 04:05 97.4 F 80 24 118/48 95 03/15/19 00:57 95 03/15/19 00:18 97.6 F 90 20 122/56 95 03/14/19 23:07 95 03/14/19 22:00 92 H 20 93/52 95 03/14/19 20:37 88 18 98/51 97 03/14/19 19:34 98.0 F 75 20 106/54 95 General Appearance: no apparent distress, alert Neurologic Exam: alert, oriented x 3, cooperative, normal mood/affect, nml cerebellar function, nml station & gait, sensation nml, No motor deficits Eye Exam: PERRL/EOMI, eyes nml inspection Ears, Nose, Throat Exam: normal ENT inspection, TMs normal, pharynx normal, moist mucous membranes Neck Exam: normal inspection, non-tender, supple, full range of motion Respiratory Exam: normal breath sounds, lungs clear, No respiratory distress Cardiovascular Exam: regular rate/rhythm, normal heart sounds, normal peripheral pulses Gastrointestinal/Abdomen Exam: soft, normal bowel sounds, No tenderness, No mass Back Exam: normal inspection, normal range of motion, No CVA tenderness, No vertebral tenderness Extremity Exam: normal inspection, normal range of motion, pelvis stable, pedal edema Skin Exam: warm, rash Wound Assessment: Skin/Wound Assessment Wound/Incision Assessment Start: 03/14/19 23: 32 Text: Status: Active Freq: Q6H Protocol: Document 03/15/19 08:00 CANELO (Rec: 03/15/19 09:07 CCA [id number]) Wound/Incision Assessment Left Lower leg Wound Assessment Shift Assessment Wound Type Cellulitis Wound Stage Non Pressure Wound Dressing Status Dry & Intact Drainage Amount Minimal Drainage Description Serous General Appearance Reddened Length (cm) (cm) 3 Width (cm) (cm) 4 Wound Bed Greatest Portion Red (Granulation) Wound Bed Lesser Portion Red (Granulation) Surrounding Tissue Bright Red Primary Dressing telfa Secondary Dressing Gauze Roll/Wrap Comment Open area on posterior lower leg, 5x6 cm unopened blister on dorsal aspect of left foot. dressing intact Right Lower Leg Wound Assessment Shift Assessment Wound Type Cellulitis Wound Stage Non Pressure Wound Dressing Status Dry & Intact Drainage Amount Moderate Drainage Description Serous General Appearance Reddened Length (cm) (cm) 11 Width (cm) (cm) 14 Wound Bed Greatest Portion Red (Granulation) Wound Bed Lesser Portion Red (Granulation) Surrounding Tissue Bright Red Primary Dressing telfa Secondary Dressing Gauze Roll/Wrap Comment Open area on anterior right lower leg. dressing has thin yellow drainage Lymphatic Exam: No adenopathy Results - Labs Lab/Micro Results: Accuchecks Date 03/15/19 Time 11:30 Accucheck Value: 216 Lab Results-Last 24 Hours 03/14/19 03/14/19 03/15/19 Range/Units 20:54 20:54 05:00 WBC 10.9 H (4.0-10.5) K/mm3 RBC 5.00 (4.1-5.4) M/mm3 Hgb 12.8 (12.0-16.0) gm/dl Hct 42.0 (35-47) % MCV 84.0 (78-100) fl MCH 25.6 L (26-32) pg MCHC 30.5 L (32-36) g/dl RDW 22.5 H (11.5-14.0) % Plt Count 153 (150-450) K/mm3 MPV 12.2 H (6-9.5) fl Gran % 77.1 H (36.0-66.0) % Eos # (Auto) 0.22 (0-0.5) Absolute Lymphs (auto) 1.23 (1.0-4.6) Absolute Monos (auto) 1.02 (0.0-1.3) Lymphocytes % 11.3 L (24.0-44.0) % Monocytes % 9.3 (0.0-12.0) % Eosinophils % 2.0 (0.00-5.0) % Basophils % 0.3 (0.0-0.4) % Absolute Granulocytes 8.43 H (1.4-6.9) Basophils # 0.03 (0-0.4) Sodium 137 (137-145) mmol/L Potassium 3.3 L (3.5-5.1) mmol/L Chloride 95 L (98-107) mmol/L Carbon Dioxide 31 H (22-30) mmol/L Anion Gap 14.7 (5-15) MEQ/L BUN 133 H (7-17) mg/dL Creatinine 2.32 H (0.52-1.04) mg/dL Estimated GFR 21.7 ML/MIN Glucose 156 H (74-106) mg/dL Hemoglobin A1c 7.24 H (4.5-6.0) % Calcium 9.6 (8.4-10.2) mg/dL Total Bilirubin 1.90 H (0.2-1.3) mg/dL AST 67 H (14-36) U/L ALT 33 (0-35) U/L Alkaline Phosphatase 243 H (38-126) U/L Serum Total Protein 6.9 (6.3-8.2) g/dL Albumin 3.5 (3.5-5.0) g/dL Slides for Path Review YES 03/15/19 03/15/19 Range/Units 05:50 05:50 WBC 11.0 H (4.0-10.5) K/mm3 RBC 4.70 (4.1-5.4) M/mm3 Hgb 12.1 (12.0-16.0) gm/dl Hct 39.9 (35-47) % MCV 84.9 (78-100) fl MCH 25.7 L (26-32) pg MCHC 30.3 L (32-36) g/dl RDW 22.4 H (11.5-14.0) % Plt Count 156 (150-450) K/mm3 MPV 12.2 H (6-9.5) fl Gran % 74.5 H (36.0-66.0) % Eos # (Auto) 0.36 (0-0.5) Absolute Lymphs (auto) 1.27 (1.0-4.6) Absolute Monos (auto) 1.12 (0.0-1.3) Lymphocytes % 11.5 L (24.0-44.0) % Monocytes % 10.2 (0.0-12.0) % Eosinophils % 3.3 (0.00-5.0) % Basophils % 0.5 (0.0-0.4) % Absolute Granulocytes 8.23 H (1.4-6.9) Basophils # 0.05 (0-0.4) Sodium 138 (137-145) mmol/L Potassium 3.4 L (3.5-5.1) mmol/L Chloride 95 L (98-107) mmol/L Carbon Dioxide 32 H (22-30) mmol/L Anion Gap 14.3 (5-15) MEQ/L BUN 136 H (7-17) mg/dL Creatinine 2.08 H (0.52-1.04) mg/dL Estimated GFR 24.6 ML/MIN Glucose 170 H (74-106) mg/dL Hemoglobin A1c (4.5-6.0) % Calcium 9.3 (8.4-10.2) mg/dL Total Bilirubin 1.80 H (0.2-1.3) mg/dL AST 70 H (14-36) U/L ALT 34 (0-35) U/L Alkaline Phosphatase 221 H (38-126) U/L Serum Total Protein 6.4 (6.3-8.2) g/dL Albumin 3.2 L (3.5-5.0) g/dL Slides for Path Review YES Accuchecks Date 03/15/19 Time 11:30 Accucheck Value: 216 - Other Procedures and Tests Respiratory Therapy 03/15/19 00:56 BiPap/CPAP ROUTINE Assessment/Plan (1) Cellulitis and abscess of lower extremity Current Visit: Yes Status: Acute Assessment & Plan: Last Vital Signs Temp 97.8 F 03/15/19 12:00 Pulse 78 03/15/19 12:00 Resp 20 03/15/19 12:00 BP 136/68 03/15/19 12:00 Pulse Ox 96 03/15/19 12:00 Allergies red dye Allergy (Verified 11/24/16 22:24) Sulfa (Sulfonamide Antibiotics) Allergy (Verified 11/24/16 22:24) Active Medications Acetaminophen (Tylenol 325 Mg) 650 mg PO Q6H PRN PRN PRN Reason: PAIN AND/OR FEVER Stop: 04/14/19 00:15 Last Admin: 03/15/19 09:26 Dose: 650 mg Piperacillin Sod/Tazobactam Sod (Zosyn 3.375gm/100 Ml D5w) 3.375 gm in 100 mls @ 200 mls/hr IV Q6HT LORNA Stop: 04/14/19 00:00 Last Admin: 03/15/19 11:01 Dose: 200 mls/hr Sodium Chloride (Sodium Chloride 0.9% 1000 Ml) 1,000 mls @ 100 mls/hr IV .Q10H LORNA Stop: 04/13/19 23:23 Intake & Output 03/15/19 03/16/19 11:59 11:59 Intake Total 1300 540 Output Total 1600 900 Balance -300 -360 Weight 156.4 kg Orders 03/15/19 00:16 Acetaminophen 325 mg [Tylenol 325 mg] 650 mg PO Q6H PRN PRN 03/15/19 00:56 BiPap/CPAP ROUTINE 03/15/19 00:57 Pulse Oximetry .spot check 03/15/19 01:38 Cardio-Pulmonary Rehab .as ordered [place] [facility] [place]/Discharge Plan Nutritional Admission Screen OT Screen per Nursing Assess PT Screen per Nursing Assess 03/15/19 10:07 Miscellaneous Nursing Order ROUTINE 03/15/19 11:30 ACCUCHECK [Accucheck] ACHS Lab Tests 03/14/19 03/14/19 03/15/19 20:54 20:54 05:00 WBC 10.9 H RBC 5.00 Hgb 12.8 Hct 42.0 MCV 84.0 MCH 25.6 L MCHC 30.5 L RDW 22.5 H Plt Count 153 MPV 12.2 H Gran % 77.1 H Eos # (Auto) 0.22 Absolute Lymphs (auto) 1.23 Absolute Monos (auto) 1.02 Lymphocytes % 11.3 L Monocytes % 9.3 Eosinophils % 2.0 Basophils % 0.3 Absolute Granulocytes 8.43 H Basophils # 0.03 Sodium 137 Potassium 3.3 L Chloride 95 L Carbon Dioxide 31 H Anion Gap 14.7 BUN 133 H Creatinine 2.32 H Estimated GFR 21.7 Glucose 156 H Hemoglobin A1c 7.24 H Calcium 9.6 Total Bilirubin 1.90 H AST 67 H ALT 33 Alkaline Phosphatase 243 H Serum Total Protein 6.9 Albumin 3.5 Slides for Path Review YES 03/15/19 03/15/19 05:50 05:50 WBC 11.0 H RBC 4.70 Hgb 12.1 Hct 39.9 MCV 84.9 MCH 25.7 L MCHC 30.3 L RDW 22.4 H Plt Count 156 MPV 12.2 H Gran % 74.5 H Eos # (Auto) 0.36 Absolute Lymphs (auto) 1.27 Absolute Monos (auto) 1.12 Lymphocytes % 11.5 L Monocytes % 10.2 Eosinophils % 3.3 Basophils % 0.5 Absolute Granulocytes 8.23 H Basophils # 0.05 Sodium 138 Potassium 3.4 L Chloride 95 L Carbon Dioxide 32 H Anion Gap 14.3 BUN 136 H Creatinine 2.08 H Estimated GFR 24.6 Glucose 170 H Hemoglobin A1c Calcium 9.3 Total Bilirubin 1.80 H AST 70 H ALT 34 Alkaline Phosphatase 221 H Serum Total Protein 6.4 Albumin 3.2 L Slides for Path Review YES Code(s): L03.119 - CELLULITIS OF UNSPECIFIED PART OF LIMB; L02.419 - CUTANEOUS ABSCESS OF LIMB, UNSPECIFIED (2) Cellulitis Current Visit: No Status: Acute Qualifiers: Site of cellulitis of extremity: lower extremity Laterality: unspecified laterality Code(s): L03.90 - CELLULITIS, UNSPECIFIED (3) Cellulitis of leg without foot, left Current Visit: No Status: Acute Code(s): L03.116 - CELLULITIS OF LEFT LOWER LIMB (4) Coronary arteriosclerosis after coronary artery bypass grafting Current Visit: No Status: Acute Code(s): I25.810 - ATHEROSCLEROSIS OF CABG W /O ANGINA PECTORIS (5) Essential hypertension Current Visit: No Status: Acute Code(s): I10 - ESSENTIAL (PRIMARY) HYPERTENSION
[2019-03-15] MEDS ORDERED: TYLENOL EXTRA STRENGTH 500 MG PO PRN (13:58)
[2019-03-15] MEDS ORDERED: Nitrostat 0.4 MG Tablet SL PRN (13:58)
[2019-03-15] MEDS ORDERED: MEDICATION INTERVENTION MC SCH (14:30)
[2019-03-15] MEDS ORDERED: BUMEX 1 MG PO SCH (15:00)
[2019-03-15] MEDS: Klor Con 10 MEQ PO SCH (17:22)
[2019-03-15] MEDS: PLAVIX 75 MG Tablet PO SCH (17:23)
[2019-03-15] MEDS: ZYLOPRIM 100 MG PO SCH (17:23)
[2019-03-15] MEDS: SYNTHROID 125 MCG PO SCH (17:23)
[2019-03-15] MEDS: NORCO 5/325 MG PO PRN ×2 (17:24→21:40)
[2019-03-15] MEDS: CLARITIN 10 MG PO SCH (17:24)
[2019-03-15] MEDS: Lopressor 50 MG PO SCH ×2 (17:24→20:55)
[2019-03-15] MEDS ORDERED: Sodium Chloride 0.9% 10 ML FLUSH Syringe IV PRN (17:30)
[2019-03-15] MEDS ORDERED: Novolin 70/30 SQ SCH (18:00)
[2019-03-15] MEDS: Vibramycin 100 MG PO SCH (21:23)
[2019-03-15] MEDS: Sodium Chloride 0.9% 10 ML FLUSH Syringe IV SCH (21:27)
[2019-03-15] MEDS ORDERED: Mirapex 0.5 MG Tablet PO SCH (22:00)
[2019-03-15] MEDS ORDERED: Cozaar 50 MG PO SCH (22:00)
[2019-03-15] MEDS ORDERED: ZOCOR 20MG PO SCH (22:00)
[2019-03-15] MEDS ORDERED: NEURONTIN 300 MG PO SCH (22:00)
[2019-03-15] MEDS ORDERED: DOXYCYCLINE HYCLATE 100 MG PO SCH (22:00)
[2019-03-15] MEDS ORDERED: NON-FORMULARY ITEM (Losartan Potassium [Losartan Potassium] 25 MG) PO SCH (22:00)
[2019-03-15] MEDS ORDERED: NON-FORMULARY ITEM (Pravastatin Sodium [Pravastatin Sodium] 20 MG) PO SCH (22:00)
[2019-03-15] MEDS ORDERED: BUMETANIDE PO SCH (22:00)
[2019-03-15] MEDS ORDERED: ECOTRIN 81 MG PO SCH (22:00)
[2019-03-15] MEDS ORDERED: Lopressor 25MG Tab PO SCH (22:00)
[2019-03-16] MEDS: Zosyn 3.375GM/100 Ml D5W 3.375 GM/100 ML IVPB IV SCH ×2 (00:06→05:51)
[2019-03-16] MEDS: NORCO 5/325 MG PO PRN (01:31)
[2019-03-16 05:15] LABS: ALBUMIN 3.2 g/dL (3.5-5.0); BILIRUBIN,TOTAL 1.9 mg/dL (0.2-1.3); Calcium 9.4 mg/dL (8.4-10.2); Creatinine 1 1.98 mg/dL (0.52-1.04); Potassium 3.1 mmol/L (3.5-5.1); Total Protein 6.4 g/dL (6.3-8.2)
[2019-03-16] MEDS: Sodium Chloride 0.9% 10 ML FLUSH Syringe IV SCH (06:21)
[2019-03-16] MEDS ORDERED: Novolin 70/30 SQ SCH (08:00)
[2019-03-16] MEDS: Lopressor 50 MG PO SCH (09:05)
[2019-03-16] MEDS: ZYLOPRIM 100 MG PO SCH (09:05)
[2019-03-16] MEDS: SYNTHROID 125 MCG PO SCH (09:05)
[2019-03-16] MEDS: PLAVIX 75 MG Tablet PO SCH (09:05)
[2019-03-16] MEDS: Klor Con 10 MEQ PO SCH (09:05)
[2019-03-16] MEDS: Vibramycin 100 MG PO SCH (09:05)
[2019-03-16] MEDS: CLARITIN 10 MG PO SCH (09:05)
[2019-03-16] MEDS ORDERED: SYNTHROID 100 MCG PO SCH (10:00)
[2019-03-16] MEDS ORDERED: NON-FORMULARY ITEM (Potassium Chloride 20 Meq [Klor-Con 20 Meq] 20 MEQ) PO SCH (10:00)
[2019-03-16] MEDS ORDERED: UBIDECARENONE PO SCH (10:00)
[2019-03-16] MEDS ORDERED: ZYLOPRIM 300 MG PO SCH (10:00)
[2019-03-16] MEDS ORDERED: VIT E ACET PO SCH (10:00)
[2019-03-16 10:58] VITALS: BP 116/53; PULSE 79; O2SAT 94
[2019-03-17] MEDS ORDERED: Zaroxolyn 2.5 MG PO SCH (10:00)
== END 2019-03-16 11:41 | disposition short-term general hospital (02) ==
LOC: ED 19:32 → MED SURG 23:14
PROVIDERS: ADMIT General Practice; ATTEND General Practice
DX: L03.116 Cellulitis of left lower limb (principal); L03.115 Cellulitis of right lower limb; I25.810 Atherosclerosis of coronary artery bypass graft(s) without angina pectoris; I10 Essential (primary) hypertension; Z79.01 Long term (current) use of anticoagulants; Z79.899 Other long term (current) drug therapy; G47.30 Sleep apnea, unspecified; E03.9 Hypothyroidism, unspecified; M10.9 Gout, unspecified; E78.00 Pure hypercholesterolemia, unspecified
CPT/HCPCS: 36000; 36415; 80053; 82962; 83036; 85025; 87040; 87070; 87077; 87186; 94660; 94760; 96360; 96361; 99285; 99291; A6457; G0378; J1815; J2543; A9270-GY